=== PATIENT | male | born 1945 | race Caucasian/White ===

== ENCOUNTER 2018-04-02 07:02 | Day surgery (SDC) | payer MEDICARE ==
[~2018-04-02] VITALS: Ht 180.3 cm; Wt 93.0 kg
[2018-04-02] VITALS (13 sets, daily range): BP systolic 116–201; BP diastolic 83–114
[2018-04-02] MEDS ORDERED: LIDOCAINE 1% INJ 20 ML 20 ML VIAL ONE (07:09)
[2018-04-02] MEDS ORDERED: HEParin (CATH LAB) 2,000 ML IV ONE (07:09)
[2018-04-02] MEDS ORDERED: NS IV 1000 ML 1,000 ML ONE (07:09)
[2018-04-02] MEDS: NS IV 1000 ML 1,000 ML IV SCH ×2 (07:29→12:05)
[2018-04-02 07:34] LABS: HEMOGLOBIN 16.4 G/DL (13.3-17.7); MEAN PLATELET VOLUME 11.3 FL (7.4-10.4); RED BLOOD COUNT 5.52 10^6/uL (4.35-5.85); RED CELL DISTRIBUTION WIDTH 12.4 % (10.0-14.5); WHITE BLOOD COUNT 6.6 10^3/uL (4.3-11.0)
[2018-04-02 07:45] LABS: INR 1.1 (0.8-1.4); PROTHROMBIN TIME PATIENT 14.2 SEC (12.2-14.7)
[2018-04-02] MEDS ORDERED: FLU QUADRIvalent (5+ YOA) 2018-2019 (AFLURIA) 0.5 ML IM ONE (07:45)
[2018-04-02] MEDS ORDERED: ASPI-586 PO (07:47)
[2018-04-02] MEDS ORDERED: METO100T6 PO (07:47)
[2018-04-02] MEDS ORDERED: LOSA25TA6 PO (07:47)
[2018-04-02 07:51] LABS: ALANINE AMINOTRANSFERASE 13 U/L (0-55); ALBUMIN 4.4 GM/DL (3.2-4.5); ALKALINE PHOSPHATASE 104 U/L (40-136); BUN/CREATININE RATIO 13; CALCIUM 9.6 MG/DL (8.5-10.1); CARBON DIOXIDE 27 MMOL/L (21-32); CHLORIDE 105 MMOL/L (98-107); CHOLESTEROL 166 MG/DL (< 200); CREATININE SERUM 0.98 MG/DL (0.60-1.30); GFR ESTIMATED > 60; GLUCOSE 115 MG/DL (70-105); HDL CHOLESTEROL 32 MG/DL (40-60); POTASSIUM 3.7 MMOL/L (3.6-5.0); SODIUM 142 MMOL/L (135-145); TOTAL PROTEIN 7.1 GM/DL (6.4-8.2); TRIGLYCERIDES 74 MG/DL (<150); VLDL CHOLESTEROL 15 MG/DL (5-40)
[2018-04-02] MEDS ORDERED: MIDAZOLAM 5 MG/5 ML (VERSED) VIAL ONE (09:24)
[2018-04-02] MEDS ORDERED: fentaNYL INJECTION 100 MCG/2 ML AMP ONE ×2 (09:24→10:55)
[2018-04-02] MEDS ORDERED: HEParin 1000 UNIT/ML (10ML VIAL) FOR BOLUS ONE (09:56)
[2018-04-02] MEDS ORDERED: NITRO DRIP 25000 MCG/D5W 250 ML IV ONE (09:56)
[2018-04-02] MEDS ORDERED: EPTIFIBATIDE BOLUS 20 ML IV ONE (10:00)
[2018-04-02] MEDS ORDERED: MIDAZOLAM 2 MG/2 ML (VERSED) VIAL ONE (10:23)
[2018-04-02] MEDS ORDERED: CLOPIDOGREL 300 MG (PLAVIX) TABLET PO ONE (10:41)
[2018-04-02] MEDS ORDERED: ASPIRIN 81 MG CHEW (CHILDREN'S ASA) ONE (10:41)
[2018-04-02] MEDS ORDERED: NS IV 1000 ML 1,000 ML IV SCH (11:13)
--- NOTE | 2018-04-02 11:13 | Cardiac Procedure Note-CS/ASA ---
Pre-Procedure Note Pre-Op Procedure Note H&P Reviewed The H&P was reviewed, patient examined and no changes noted. Date H&P Reviewed: Apr 02, 2018 Time H&P Reviewed: 09:45 Conscious Sedation Pre-Proced Time 09:45 ASA Score 3 For ASA 3 and 4: Consider anesthesia and medical clearance. Also, for patients with a history of failed moderate sedation consider anesthesia. Airway Lungs Heart ASA score ASA 1: a normal healthy patient ASA 2: a patient with a mild systemic disease (mid diabetes, controlled hypertension, obesity ASA 3: a patient with a severe systemic disease that limits activity (angina , COPD, prior Myocardial infarction) ASA 4: a patient with an incapacitating disease that is a constant threat to life (CHF, renal failure) ASA 5: a moribund patient not expected to survive 24 hrs. (ruptured aneurysm) ASA 6: a declared brain patient whose organs are being harvested. For emergent operations, add the letter E after the classification Mallampati Classification Grade 2 Sedation Plan Analgesia, Amnesia, Plan communicated to team members, Discussed options with patient/fam, Discussed risks with patient/fam The patient is an appropriate candidate to undergo the planned procedure, sedation, and anesthesia. The patient immediately re-assessed prior to indication. FRANCIS FALCON MD FACP FAC CCDS Apr 02, 2018 11:13
[2018-04-02] MEDS ORDERED: ACETAMINOPHEN 325 MG TABLET PO PRN (11:15)
[2018-04-02] MEDS ORDERED: PATIENT MAY USE OWN MEDS, ALL PO SCH (11:15)
--- NOTE | 2018-04-02 11:38 | CARDIAC CATHETERIZATION ---
DATE OF SERVICE: 04/02/2018 CARDIAC CATHETERIZATION AND CORONARY INTERVENTION REPORT The patient is a 72-year-old man with multiple coronary artery disease risk factors and symptoms of an angina equivalent. Cardiac catheterization was carried out today after having obtained informed consent for cardiac catheterization and possible ad hoc coronary intervention. PROCEDURE: He was brought to the cardiac catheterization laboratory in a fasting state. Right groin was prepared and draped in usual sterile fashion. Lidocaine 1% was used for local anesthesia. Modified Seldinger technique was used to advance a 5-Malawian sheath in right femoral artery. A 5-Malawian JL4 catheter was used for left coronary angiography, 5-Malawian JR4 catheter was used for right coronary angiography. A 5-Malawian pigtail catheter was used for left heart catheterization, left ventricular angiography. PERCUTANEOUS INTERVENTION TO THE RIGHT CORONARY ARTERY: Following completion of the diagnostic procedure, we carried out percutaneous intervention of the right coronary artery where the patient was exhibiting 99% mid vessel stenosis. We exchanged the sheath over a wire for a 6-Malawian sheath. We used a 6-Malawian JR4 guide catheter with side holes. We gave 6000 units of intravenous heparin and a double bolus of Integrilin. We advanced a ChoICE floppy wire across the lesion and the tip was placed in the distal vessel. We carried out balloon angioplasty with Emerge 2.0 x 30 mm balloon. This improved the stenosis from 99% to approximately 70%. The balloon was removed and we advanced Nathalie 2.25 x 28 mm stent to the lesion. This was carefully positioned and the stent was deployed at 20 atmospheres and giving a stent lumen size of 2.63. The balloon was removed. We then carried out post-dilatation with Quantum NC 2.75 x 12 mm balloon. The proximal two-thirds of the stent was dilated with this balloon. This was done because the proximal part of the stented vessel was of a slightly larger caliber than the distal part of the stented vessel. The balloon was removed. Angiography indicates no significant residual stenosis and flow throughout the vessel is normal. A distal 40% to 50% stenosis was in the right coronary artery was not intervened on. The stent does senior living the right ventricular branch, but the right ventricular branch remains uncompromised. The angioplasty equipment was removed. We then used a 6-Malawian JL4 guide catheter to engage the left coronary artery. The diagnostic images had indicated a seeming lesion of approximately 70% in the proximal left circumflex. We planned intervention to that and used a 6-Malawian JL4 guide catheter for that purpose then advanced a ChoICE floppy wire across the lesion. However, subsequent angiography indicates no significant stenosis. The stenosis appears to be only about 10% to 20%. It seems that there is a natural kink in the vessel, which was giving the appearance of a stenosis in the proximal left circumflex artery. Therefore, we did not carry out any intervention to this. We removed the wire and the guide. We carried out angiography of the right femoral artery through the sheath and Mynx was used to achieve hemostasis. HEMODYNAMICS: Left ventricular end-diastolic pressure following coronary angiography was 10 mmHg. There was no significant pressure gradient on pullback across the aortic valve. Ascending aortic pressure was 135/74 with a mean of 101 mmHg. LEFT VENTRICULAR ANGIOGRAPHY: Left ventricular angiography was carried out in the right anterior oblique projection. Global left ventricular systolic function normal. No regional wall motion abnormalities are seen and left ventricular ejection fraction is estimated to be 60% to 65%. There does not appear to be significant mitral regurgitation. CORONARY ANGIOGRAPHY: Left main coronary artery is free of significant disease. Left anterior descending artery is tortuous and free of significant disease. Left circumflex artery is tortuous. There appeared to be, initially, a 70% stenosis in the proximal left circumflex, but with straightening of this portion with a ChoICE floppy wire, there was no significant stenosis, indicating that what seemed to be a stenosis was a natural kink in the vessel and this was not intervened on. The right coronary artery is dominant and had a long 99% stenosis in mid portion to which successful balloon angioplasty and stenting was carried out that is described in detail above. Following intervention, there is 0% residual stenosis and normal flow in the vessel. The distal right coronary artery has 40% to 50% stenosis that was not intervened on. CONCLUSIONS: 1. Coronary artery disease, primarily single vessel, primarily consisting of a long 99% mid vessel stenosis in the right coronary artery to which successful stenting was carried out with Nathalie 2.25 x 28 mm stent that was postdilated to 2.75 mm diameter. The distal right coronary artery has 40% to 50% stenosis. The left coronary system is tortuous, but does not seem to have significant disease. 2. Normal global left ventricular systolic function with ejection fraction 60% to 65%. 3. Normal left ventricular end-diastolic pressure. DISCUSSION AND RECOMMENDATIONS: Risk factor modification has been reviewed with him. We have added a dual antiplatelet therapy to his regimen. He is on beta jessica. This is being continued. Statins are being added. Outpatient followup is advised. Job ID: [id number] DocumentID: [id number] Dictated Date: 04/02/2018 10:47:52 Engineering Mathematician Date: 04/02/2018 11:36:54 Dictated By: FRANCIS FALCON MD, MA, FACP, FACC, MTDD
[2018-04-02] MEDS ORDERED: ATORVASTATIN 40 MG (LIPITOR) TABLET PO SCH (21:00)
[2018-04-03 03:10] VITALS: BP 118/80
[2018-04-03 03:37] LABS: HEMOGLOBIN 13.5 G/DL (13.3-17.7); MEAN PLATELET VOLUME 11.6 FL (7.4-10.4); RED BLOOD COUNT 4.68 10^6/uL (4.35-5.85); RED CELL DISTRIBUTION WIDTH 12.3 % (10.0-14.5); WHITE BLOOD COUNT 8.4 10^3/uL (4.3-11.0)
[2018-04-03 03:54] LABS: BUN/CREATININE RATIO 16; CALCIUM 8.8 MG/DL (8.5-10.1); CARBON DIOXIDE 24 MMOL/L (21-32); CHLORIDE 108 MMOL/L (98-107); CREATININE SERUM 0.95 MG/DL (0.60-1.30); GFR ESTIMATED > 60; GLUCOSE 104 MG/DL (70-105); POTASSIUM 3.5 MMOL/L (3.6-5.0); SODIUM 142 MMOL/L (135-145)
--- NOTE | 2018-04-03 07:52 | Progress Note-Cardiology ---
Cardiology SOAP Progress Note Subjective: Sitting up in bed. Denies any c/o CP, palpitations,syncope or near syncope. Reports SOB is better today. Has been up ambulating in the halls. No c/o groin pain. Objective: I&O/Vital Signs 04/02/18 04/03/18 04/03/18 23:40 01:00 03:10 Temp 97.6 98.2 Pulse 59 55 69 Resp 14 14 B/P (MAP) 127/83 (98) 118/80 (93) Pulse Ox 97 97 O2 Delivery Room Air Room Air 04/03/18 00:00 Intake Total 1000 ml Balance 1000 ml Weight (Pounds): 205 Weight (Ounces): 0.0 Weight (Calculated Kilograms): 92.895029 Side: right Groin site without hematoma: Yes Condition: DP/PT pulses palpable, extremity w/d/p Bruising: moderated bruising Constitutional: AAO x 3 Respiratory: chest expansion is symmetric, chest is bilaterally symmetric, lungs clear to auscultation Cardiovascular: regular rate-rhythm; No JVD; S1 and S2 Gastrointestional: No tender; soft, audible bowel sounds Extremities: no lower extremity edema bilateral Neurologic/Psychiatric: grossly intact Skin: No rash, No ulcerations Results/Procedures: Labs Laboratory Tests 04/03/18 03:05: White Blood Count 8.4, Red Blood Count 4.68, Hemoglobin 13.5, Hematocrit 41, Mean Corpuscular Volume 88, Mean Corpuscular Hemoglobin 29, Mean Corpuscular Hemoglobin Concent 33, Red Cell Distribution Width 12.3, Platelet Count 222, Mean Platelet Volume 11.6H, Sodium Level 142, Potassium Level 3.5L, Chloride Level 108H, Carbon Dioxide Level 24, Anion Gap 10, Blood Urea Nitrogen 15, Creatinine 0.95, Estimat Glomerular Filtration Rate > 60, BUN/Creatinine Ratio 16, Glucose Level 104, Calcium Level 8.8 Procedures S/P cardiac cath of Apr 02, 2018. Please refer to Dr. Sprague's cardiac cath report for details. A/P: Assessment: CAD - Coronary artery disease, primarily single vessel, primarily consisting of a long 99% mid vessel stenosis in the right coronary artery to which successful stenting was carried out with Nathalie 2.25 x 28 mm stent that was postdilated to 2.75 mm diameter. The distal right coronary artery has 40% to 50% stenosis. The left coronary system is tortuous, but does not seem to have significant disease. Normal global left ventricular systolic function with ejection fraction 60% to 65%. Normal left ventricular end-diastolic pressure. Per cardiac cath of Apr 02, 2018 Hypertension HLD - statin tx Nonspecific ST abn on ECG of 03/27/18 Quit tobacco use in the late Plan: OK to discharge home today Discussed cardiac cath findings and intervention with him in detail and answered questions Risk factor modification advised Continue current medication regimen including ASA, Plavix, statin, BB and ARB Out pt f/u in a week Lab in 4 weeks ARMINDA FIGUEREDO Apr 03, 2018 07:52
[2018-04-03] MEDS ORDERED: LOSA50TA7 PO (07:54)
[2018-04-03] MEDS ORDERED: CLOP75TA28 PO (07:54)
[2018-04-03] MEDS ORDERED: ATOR40TA PO (07:54)
[2018-04-03] MEDS ORDERED: ASPI-999 PO (07:54)
--- NOTE | 2018-04-03 07:57 | Discharge Inst-Cardiology ---
Discharge Inst-Cardiac Discharge Medications New Medications: Aspirin (Aspirin) 81 Mg Tab.chew 0 MG PO DAILY, #120 TAB 5 Refills Atorvastatin Calcium (Lipitor) 40 Mg Tablet 40 MG PO HS, #30 TAB 5 Refills Clopidogrel Bisulfate (Clopidogrel) 75 Mg Tablet 75 MG PO DAILY, #30 TAB 5 Refills Losartan Potassium (Losartan Potassium) 50 Mg Tablet 50 MG PO DAILY, #30 TAB 5 Refills Continued Medications: Metoprolol Succinate (Toprol Xl) 100 Mg Tab.er.24h 100 MG PO DAILY, TAB Discontinued Medications: Aspirin (Aspir 81) 81 Mg Tablet.dr 81 MG PO DAILY, TAB Losartan Potassium (Losartan Potassium) 25 Mg Tablet 25 MG PO DAILY, TAB New, Converted or Re-Newed RX: Transmitted to Pharmacy Patient Instructions Patient Instructions: Please schedule follow up appointment to see Dr. Sprague in one week Lab: Fasting lipid and CMP in 4 weeks Orders-Post D/C & Referrals Pneu Vac Indicated: Yes ARMINDA FIGUEREDO Apr 03, 2018 07:57
[2018-04-03] MEDS ORDERED: LOSARTAN 50 MG (COZAAR) TAB PO SCH (09:00)
[2018-04-03] MEDS ORDERED: CLOPIDOGREL 75 MG (PLAVIX) TABLET PO SCH (09:00)
[2018-04-03] MEDS ORDERED: meTOprolol SUCCINATE 100 MG (TOPROL XL) TAB PO SCH ×2 (09:00)
[2018-04-03] MEDS ORDERED: ASPIRIN 81 MG CHEW (CHILDREN'S ASA) PO SCH ×2 (09:00)
[2018-04-03] MEDS ORDERED: NON-FORMULARY MEDICATION 1 EA EA (Metoprolol Succinate (Toprol Xl) 100 MG) PO SCH (09:00)
[2018-04-03 09:20] VITALS: BP 133/81
== END 2018-04-03 09:22 | disposition home or self-care (01) ==
LOC: CATH 07:02 → ICU 12:07 → CATH 04-03 09:22
PROVIDERS: ATTEND Internal Medicine Cardiovascular Disease
DX: I25.10 Atherosclerotic heart disease of native coronary artery without angina pectoris (principal); R06.09 Other forms of dyspnea; I10 Essential (primary) hypertension; E78.5 Hyperlipidemia, unspecified; Z87.891 Personal history of nicotine dependence; Z79.82 Long term (current) use of aspirin; Z79.899 Other long term (current) drug therapy
CPT/HCPCS: 36415; 80048; 80053; 80061; 85027; 85610; 85730; 87081; 93005; 93458

== ENCOUNTER → 2018-05-01 | Outpatient (CLI) | payer MEDICARE ==
[~2018-05-01] MED LIST: ASPI-586 PO; ASPI-999 PO; ATOR40TA PO; CLOP75TA28 PO; LOSA25TA6 PO; LOSA50TA7 PO; METO100T6 PO
[2018-05-01 09:38] LABS: ALANINE AMINOTRANSFERASE 19 U/L (0-55); ALKALINE PHOSPHATASE 125 U/L (40-136); BILIRUBIN,TOTAL 0.6 MG/DL (0.1-1.0); BUN/CREATININE RATIO 12; CALCIUM 9.1 MG/DL (8.5-10.1); CARBON DIOXIDE 24 MMOL/L (21-32); CHLORIDE 110 MMOL/L (98-107); CHOLESTEROL 61 MG/DL (< 200); CREATININE SERUM 0.93 MG/DL (0.60-1.30); GFR ESTIMATED > 60; GLUCOSE 109 MG/DL (70-105); HDL CHOLESTEROL 26 MG/DL (40-60); SODIUM 143 MMOL/L (135-145); TOTAL PROTEIN 6.3 GM/DL (6.4-8.2); TRIGLYCERIDES 30 MG/DL (<150); VLDL CHOLESTEROL 6 MG/DL (5-40)
== END ==
LOC: LAB 08:43
PROVIDERS: ATTEND Nurse Practitioner Family
DX: I25.10 Atherosclerotic heart disease of native coronary artery without angina pectoris (principal)
CPT/HCPCS: 36415; 80053; 80061

== ENCOUNTER → 2020-10-29 | Outpatient (CLI) | payer MEDICARE ==
[~2020-10-29] MED LIST changes: +CATHETER FLUSH 10 ML SYR IV PRN; +LOSA25TA41 PO; -LOSA25TA6 PO; +LOSA50TA63 PO; -LOSA50TA7 PO; +REGADENOSON 0.4 MG/5 ML SYR (LEXISCAN) IV ONE
[2020-10-29 08:47] VITALS: BP 176/98
== END ==
LOC: CARD 07:05
PROVIDERS: ATTEND Nurse Practitioner Family
DX: I25.10 Atherosclerotic heart disease of native coronary artery without angina pectoris (principal)
CPT/HCPCS: 78452; 93017; A9502

== ENCOUNTER 2021-02-11 06:22 | Day surgery (SDC) | payer MEDICARE ==
[~2021-02-11] VITALS: Ht 180.3 cm; Wt 90.9 kg
[~2021-02-11 06:22] MED LIST changes: +AMLO-251 PO; +ATOR40TA70 PO; -CATHETER FLUSH 10 ML SYR IV PRN; +IRBE150T23 PO; -REGADENOSON 0.4 MG/5 ML SYR (LEXISCAN) IV ONE; +TADA10TA PO
[2021-02-11] MEDS ORDERED: TIMOLOL MALEATE 0.5% 5 ML (TIMOPTIC) BTL OU PRN (06:30)
[2021-02-11] MEDS ORDERED: MOXIFLOXACIN OPHTH SOLN 5 MG/ML 0.3 ML SYRINGE OP ONE (06:30)
[2021-02-11] MEDS ORDERED: LIDOCAINE PF 1% 2 ML VIAL IR PRN (06:30)
[2021-02-11] MEDS ORDERED: POVIDONE (BETADINE) OPHTH SOLN 5% 30 ML OP ONE (06:30)
[2021-02-11] MEDS: TETRACAINE 0.5% OPHTH SOLN 4 ML BTL (SINGLE DOSE ONLY) OU PRN ×4 (06:38→06:57)
[2021-02-11 06:44] VITALS: BP 160/105
[2021-02-11] MEDS: TROPICAMIDE 1% OPH SOLN (MYDRIACYL) 15 ML BTL OP SCH ×3 (06:46→06:58)
[2021-02-11] MEDS: PHENYLEPHRINE 10% OPHTH (NEO-SYN) 5 ML BTL OU SCH ×3 (06:46→06:58)
[2021-02-11] MEDS ORDERED: MIDAZOLAM 2 MG/2 ML (VERSED) VIAL ONE (07:18)
--- NOTE | 2021-02-11 07:53 | Ophthalmologist Pre-Op Note ---
Pre-Operative Progress Note H&P Reviewed The H&P was reviewed, patient examined and no changes noted. Date H&P Reviewed: Feb 11, 2021 Time H&P Reviewed: 07:53 Pre-Op Dx Cataract, Left Eye MERCY CARUSO MD Feb 11, 2021 07:53
[2021-02-11] MEDS ORDERED: acetaZOLAMIDE ER 500 MG CAP (DIAMOX SEQUELS) PO ONE (08:00)
--- NOTE | 2021-02-11 08:16 | Ophthalmology Operative Report ---
Cataract removal/placement IOL PREOPERATIVE DIAGNOSIS: Cataract Left Eye POSTOPERATIVE DIAGNOSIS: Cataract Left Eye PROCEDURE: Cataract removal and placement of posterior chamber implant, left eye SURGEON: Gary Caruso ANESTHESIA: Topical with sedation COMPLICATIONS: None ESTIMATED BLOOD LOSS: Minimal DESCRIPTION OF PROCEDURE: After proper informed consent was obtained, the patient, a 75 male, was taken to the Operating Room and the left eye was anesthetized with tetracaine. The left eye was then prepped and draped in the usual manner. A wire lid speculum was placed. A paracentesis was made at the left hand position. Preservative free lidocaine was injected into the anterior chamber followed by viscoelastic. A clear corneal incision was made in the temporal position. A capsulorrhexis was preformed and the central nuclear and cortical material were removed. The posterior capsule was polished and an Rony 21.0 [id number] was placed into the capsular bag. The residual viscoelastic was aspirated and balanced saline solution was injected into the anterior chamber. Moxifloxacin was injected into the anterior chamber. The wound was checked and found to be water tight. The patient tolerated the procedure well without complications. GARY CARUSO MD Feb 11, 2021 08:16
[2021-02-11 08:20] VITALS: BP 173/107
--- NOTE | 2021-02-11 13:51 | Anesthesia-General Post-Op ---
MAC Patient Condition Mental Status/LOC: Same as Preop Cardiovascular: Satisfactory Nausea/Vomiting: Absent Respiratory: Satisfactory Pain: Controlled Complications: Absent Post Op Complications Complications None Follow Up Care/Instructions Patient Instructions None needed. Anesthesiology Discharge Order Discharge Order Patient is doing well, no complaints, stable vital signs, no apparent adverse anesthesia problems. No complications reported per nursing. IOANA CAM CRNA Feb 11, 2021 13:51
== END 2021-02-11 08:20 | disposition home or self-care (01) ==
LOC: SDC 06:22
PROVIDERS: ATTEND Specialist
DX: H25.12 Age-related nuclear cataract, left eye (principal); I10 Essential (primary) hypertension; Z79.899 Other long term (current) drug therapy; Z79.82 Long term (current) use of aspirin; Z79.02 Long term (current) use of antithrombotics/antiplatelets; Z87.891 Personal history of nicotine dependence
CPT/HCPCS: 66984; V2632

== ENCOUNTER 2021-02-18 06:56 | Day surgery (SDC) | payer MEDICARE ==
[~2021-02-18] VITALS: Ht 180.3 cm; Wt 90.9 kg
[2021-02-18] MEDS ORDERED: LIDOCAINE PF 1% 2 ML VIAL IR PRN (07:00)
[2021-02-18] MEDS ORDERED: MOXIFLOXACIN OPHTH SOLN 5 MG/ML 0.3 ML SYRINGE OP ONE (07:00)
[2021-02-18] MEDS ORDERED: POVIDONE (BETADINE) OPHTH SOLN 5% 30 ML OP ONE (07:00)
[2021-02-18] MEDS ORDERED: TIMOLOL MALEATE 0.5% 5 ML (TIMOPTIC) BTL OU PRN (07:00)
[2021-02-18] MEDS: TETRACAINE 0.5% OPHTH SOLN 4 ML BTL (SINGLE DOSE ONLY) OU PRN ×4 (07:09→07:28)
[2021-02-18] MEDS: TROPICAMIDE 1% OPH SOLN (MYDRIACYL) 15 ML BTL OP SCH ×3 (07:16→07:28)
[2021-02-18] MEDS: PHENYLEPHRINE 10% OPHTH (NEO-SYN) 5 ML BTL OU SCH ×3 (07:16→07:28)
[2021-02-18 07:19] VITALS: BP 135/80
[2021-02-18] MEDS ORDERED: MIDAZOLAM 2 MG/2 ML (VERSED) VIAL ONE (07:40)
--- NOTE | 2021-02-18 07:54 | Ophthalmologist Pre-Op Note ---
Pre-Operative Progress Note H&P Reviewed The H&P was reviewed, patient examined and no changes noted. Date H&P Reviewed: Feb 18, 2021 Time H&P Reviewed: 07:54 Pre-Op Dx Cataract, Right Eye MERCY CARUSO MD Feb 18, 2021 07:54
[2021-02-18] MEDS ORDERED: acetaZOLAMIDE ER 500 MG CAP (DIAMOX SEQUELS) PO ONE (08:00)
[2021-02-18] MEDS ORDERED: CARBACHOL 1.5 ML (MIOSTAT) VIAL IO ONE (08:18)
--- NOTE | 2021-02-18 08:24 | Ophthalmology Operative Report ---
Cataract removal/placement IOL PREOPERATIVE DIAGNOSIS: Cataract Right Eye POSTOPERATIVE DIAGNOSIS: Cataract Right Eye PROCEDURE: Cataract removal and placement of posterior chamber implant, right eye SURGEON: Gary Caruso ANESTHESIA: Topical with sedation COMPLICATIONS: None ESTIMATED BLOOD LOSS: Minimal DESCRIPTION OF PROCEDURE: After proper informed consent was obtained, the patient, a 75 male, was taken to the Operating Room and the right eye was anesthetized with tetracaine. The right eye was then prepped and draped in the usual manner. A wire lid speculum was placed. A paracentesis was made at the left hand position. Preservative free lidocaine was injected into the anterior chamber followed by viscoelastic. A clear corneal incision was made in the temporal position. A capsulorrhexis was preformed and the central nuclear and cortical material were removed. The posterior capsule was polished and Rony 20.0 [id number] IOL was placed into the sulcus. The residual viscoelastic was aspirated. Miostat was injected. Balanced saline solution was injected into the anterior chamber. Moxifloxacin was injected into the anterior chamber. The wound was checked and found to be water tight. The patient tolerated the procedure well without complications. GARY CARUSO MD Feb 18, 2021 08:24
[2021-02-18 08:35] VITALS: BP 155/95
--- NOTE | 2021-02-18 10:09 | Anesthesia-General Post-Op ---
General Patient Condition Mental Status/LOC: Same as Preop Cardiovascular: Satisfactory Nausea/Vomiting: Absent Respiratory: Satisfactory Pain: Controlled Complications: Absent Post Op Complications Complications None Follow Up Care/Instructions Patient Instructions None needed. Anesthesia/Patient Condition Patient Condition Patient is doing well, no complaints, stable vital signs, no apparent adverse anesthesia problems. No complications reported per nursing. RODERICK ROCHA CRNA Feb 18, 2021 10:09
== END 2021-02-18 08:38 ==
LOC: SDC 06:56
PROVIDERS: ATTEND Specialist
DX: H25.11 Age-related nuclear cataract, right eye (principal); I10 Essential (primary) hypertension; I25.10 Atherosclerotic heart disease of native coronary artery without angina pectoris; Z79.899 Other long term (current) drug therapy; Z79.82 Long term (current) use of aspirin; Z79.02 Long term (current) use of antithrombotics/antiplatelets